=== PATIENT | male | born 1985 | race Caucasian/White ===

== ENCOUNTER 2018-12-04 20:31 | Emergency (ER) | payer BC ==
[~2018-12-04] VITALS: Ht 177.8 cm; Wt 90.7 kg
--- NOTE | 2018-12-04 20:45 | NUR ---
BIB MOTHER FROM HOME. AAOX 4. NO RESP DISTRESS NOTED, BREATHING EVEN AND UNLABORED. C/O MIGRAINE HEADACHE X 1 MONTH WHICH IS WORST TODAY. PT IS BEING BOTHER BY THE LIGHT. REPORTS PAIN PRESSURE AND SHARP. 03/11. PT TOOK TRIPANTAN PRIOR TO ARRIVAL. TO ER BED 13. MD AT BEDSIDE. NEUROLOGIC EXAM DONE WITHOUT NOTED DEFICIT. AWAITING ORDERS
[2018-12-04] MEDS ORDERED: KETOROLAC TROMETHAMINE INJ 60 MG/2 ML VIAL IM ONE (21:20)
[2018-12-04] MEDS ORDERED: PROCHLORPERAZINE EDISYLATE 10 MG/2 ML VIAL ONE (21:20)
[2018-12-04] MEDS ORDERED: PROCHLORPERAZINE EDISYLATE 10 MG/2 ML VIAL IVP ONE (21:30)
[2018-12-04] MEDS ORDERED: IV NS 0.9% 1,000 ML BAG IV ONE (21:30)
[2018-12-04] MEDS ORDERED: KETOROLAC TROMETHAMINE INJ 30 MG/ML VIAL IV ONE (21:30)
[2018-12-04 22:47] VITALS: BP 119/73
== END 2018-12-04 22:49 | disposition home or self-care (01) ==
LOC: ER 20:36
DX: G43.909 Migraine, unspecified, not intractable, without status migrainosus (principal); F31.9 Bipolar disorder, unspecified; F41.9 Anxiety disorder, unspecified; F17.200 Nicotine dependence, unspecified, uncomplicated; Z98.890 Other specified postprocedural states
CPT/HCPCS: 70450; 96374; 96375; 99284; 99406; J0780; J1885